=== PATIENT | female | born 1975 | race Caucasian/White ===

== ENCOUNTER 2021-04-01 12:06 | Outpatient (CLI) | payer BC, SELFPAY ==
--- NOTE | ~2021-04-01 | XR_ITS ---
EXAMINATION: XR chest 2V DATE: 04/01/2021 12:39 INDICATION: Chest pain. TECHNIQUE: Frontal and lateral views of the chest were obtained. COMPARISON: Chest 2 views 06/30/2017 FINDINGS: There is mild scarring at the lung apices. No pleural effusion or pneumothorax. The heart s ize is normal. Pectus excavatum is noted. There is a fracture of the body of the sternum with plate a nd screw fixation. There is a reconstruction plate with multiple screws spanning the anterior fourth ribs and sternum. There is fracture of the plate to the left of midline. IMPRESSION: 1. Stable mild scarring at the lung apices. 2. Fractured reconstruction plate between the left fourth rib and sternum. Reviewed, dictated and finalized at location A.
== END 2021-04-01 12:07 | disposition home or self-care (01) ==
LOC: ANHIMG 12:19
PROVIDERS: PCP Family Medicine
DX: R07.9 Chest pain, unspecified (principal); R91.8 Other nonspecific abnormal finding of lung field
CPT/HCPCS: 71046

== ENCOUNTER 2021-04-12 10:21 | Emergency (ER) | payer BC, SELFPAY ==
--- NOTE | ~2021-04-12 | XR_ITS ---
EXAMINATION: XR chest 1V portable DATE: 04/12/2021 10:48 INDICATION: Cough and cold symptoms TECHNIQUE: frontal view of the chest was obtained. COMPARISON: Chest radiograph dated 04/01/2021 FINDINGS: The lungs remain clear with no focal airspace opacities, pulmonary edema, pleural effusion or pneumot horax. The cardiomediastinal silhouette is normal. Mild pectus excavatum with plate and screw fixatio n extending craniocaudally along the sternum. Additional plate and screw fixation extending from left to right across the anterior fourth ribs. IMPRESSION: 1. No acute cardiopulmonary disease. Reviewed, dictated and finalized at location A.
[2021-04-12 10:28] VITALS: BP 119/87; PULSE 102; RESP 20; TEMP 37.7; O2SAT 97
--- NOTE | 2021-04-12 10:46 | ED.URI ---
HPI - URI/Sore Throat General Chief Complaint: Upper Respiratory Infection Stated Complaint: covid +, dehydrated Time Seen by Provider: 04/12/21 10:26 Source: patient Mode of arrival: ambulatory Limitations: no limitations History of Present Illness HPI Narrative: Patient is a 45 year old female who presents reporting nausea and vomiting. Patient reports Covid + x 3 days. Reports vomiting after all PO intake. Patient is not vaccinated. Patient reports symptoms x 1 week. She also reports fever and cough, denies chest pain or shortness of breath. Patient denies significant medical history. MD elicited complaint: fever, cough and other (nausea and vomiting) Related Data Allergies Allergy/AdvReac Type Severity Reaction Status Date / Time Penicillins Allergy Unknown VOMITING Verified 04/12/21 10:39 Review of Systems Review of Systems: Narrative: CONSTITUTIONAL: Reports fever and chills EYES: Denies visual changes, redness, or discharge. ENT: Denies rhinorrhea, congestion, sore throat, or otalgia. CARDIOVASCULAR: Denies chest pain, palpitations, or edema. RESPIRATORY: Reports cough, denies dyspnea. GASTROINTESTINAL: Reports abdominal pain, nausea and vomiting. GENITOURINARY: Denies dysuria or hematuria. SKIN: Denies rash or itching. MUSCULOSKELETAL: Denies back pain, joint pain, or myalgia. NEUROLOGIC: Denies headache, numbness, dizziness, or weakness. PSYCHIATRIC: Denies anxiety or depression. [facility] Social History Social History Smoking status: Never smoker Second hand tobacco smoke exposure: No Alcohol intake: current Gender identity (if verbalized by the patient): Female Comments At the time of signature, I have reviewed and agree with nursing past medical, surgical, social, and family history unless otherwise noted. Please see nursing chart for further information. There is no relevant family history pertinent to the presenting complaint. Exam Narrative: Exam Narrative: GENERAL: Well-appearing, well-nourished, and in no acute distress. HEAD: Normocephalic, atraumatic. EYES: EOMI. No redness or drainage. Conjunctiva are normal. ENT: Mucous membranes pink and moist. CHEST: No respiratory distress. Clear to auscultation. HEART: Regular rate and rhythm. GI: Soft, nontender without rebound, or guarding. No distention. MUSCULOSKELETAL: No bony tenderness. EXTREMITIES: Normal range of motion. No edema. SKIN: Warm, dry, no rash. NEURO: No focal deficits. Alert and oriented x3. Gait steady. PSYCH: Normal affect. No signs of depression or anxiety. Course Vital Signs Vital signs: Vital Signs Temperature 37.7 C H 04/12/21 10:28 Pulse Rate 102 H 04/12/21 10:28 Respiratory Rate 20 04/12/21 10:28 Blood Pressure 119/87 04/12/21 10:28 Pulse Oximetry 97 04/12/21 10:28 Temperature 36.8 C 04/12/21 11:43 Pulse Rate 59 L 04/12/21 14:38 Respiratory Rate 17 04/12/21 14:38 Blood Pressure 100/76 04/12/21 14:38 Pulse Oximetry 98 04/12/21 14:38 Reviewed MDM - URI/Sore Throat MDM Narrative Medical decision making narrative: Patient has leukopenia, rest of labs are nonremarkable. Patient hydrated with 2 L of normal saline in ED along with Zofran for nausea. Patient feeling somewhat better at this time. Discussed with patient red flags and warning signs of when to return. Patient to be sent home with Zofran for nausea, instructions on staying well-hydrated as well as continuing the quarantine. Patient agrees with plan of care. Patient is stable for discharge home with outpatient follow-up as needed. Differential Diagnosis Differential diagnosis: Likely upper respiratory infection, viral infection, influenza and other (Covid) Lab Data Result diagrams: 04/12/21 10:38 04/12/21 10:38 Labs: Lab Results 04/12/21 04/12/21 04/12/21 Range/Units 10:38 10:38 11:53 WBC 2.5 L (4.5-10.0) K/mm3 RBC 5.16 (4.2-5.4) M/mm3 Hgb 15.3 H (12.0-15.0) g/dL H
[2021-04-12 10:47] LABS: Basophils Percent Auto 0.4 % (0.2-1.2); Hematocrit 46.4 % (37.0-47.0); Hemoglobin 15.3 g/dL (12.0-15.0); Immature Granulocyte Absolute 0.01 K/mm3 (0.00-0.031); Immature Granulocyte Percent A 0.4 % (0-0.5); Lymphocytes Absolute Auto 0.66 K/mm3 (0.9-3.2); Lymphocytes Percent Auto 26.4 % (18.3-44.2); Mean Corpuscular Hemoglobin 29.7 pg (26-34); Mean Corpuscular Volume 89.9 fl (80-100); Mean Platelet Volume 10.2 fl (7.4-10.4); Monocytes Absolute Auto 0.3 K/mm3 (0.1-0.6); Neutrophils Absolute Auto 1.5 K/mm3 (1.3-6.7); Neutrophils Percent Auto 60.8 % (45.5-73.1); Platelet Count Result 168 k/mm3 (150-375); Red Blood Count 5.16 M/mm3 (4.2-5.4); White Blood Count 2.5 K/mm3 (4.5-10.0)
[2021-04-12 11:03] LABS: Alanine Aminotransferase 36 U/L (4-35); Albumin Level 4.3 g/dL (3.5-5.1); Alkaline Phosphatase 54 U/L (38-126); Anion Gap 11 mmol/L (8-16); Aspartate Amino Transferase 55 U/L (14-36); Bilirubin,Total 0.4 mg/dL (0.2-1.3); Blood Urea Nitrogen 14 mg/dL (7-17); Calcium 8.9 mg/dL (8.4-10.2); Carbon Dioxide 28 mmol/L (22-30); Chloride 100 mmol/L (98-107); Estimated CRCL calculation 84 ml/min; Estimated Glomerular Filt Rate > 60; Glucose 105 mg/dL (65-110); Potassium 3.8 mmol/L (3.4-5.0); Sodium 139 mmol/L (137-145)
[2021-04-12] MEDS: ONDANSETRON INJ 4 MG/2 ML VIAL IV PUSH ×2 (11:06→13:18)
[2021-04-12] MEDS: SODIUM CHLORIDE 0.9% IV 1,000 ML 999 ML IV CONT ×2 (11:06→13:06)
[2021-04-12 11:41] VITALS: TEMP 36.8
[2021-04-12 11:43] VITALS: BP 104/71; PULSE 81; RESP 17; TEMP 36.8; O2SAT 99
[2021-04-12 12:12] LABS: Add Urine Microscopic? YES; Appearance Urine Clear (Clear); Bacteria Urine Trace /hpf; Bilirubin Urine Negative (Negative); Blood Urine 2+ (Negative); Color Urine Yellow (Yellow); Glucose Urine UA Negative (Negative); Ketones Urine 1+ mg/dL (Negative); Leukocyte Esterase Ur Negative LEU/UL (Negative); Mucus Urine Rare /lpf; Nitrate Urine Negative (Negative); Protein Urine 1+ mg/dL (Negative); RBC Urine 0-2 /hpf (0-2); Specific Grav Ur 1.024 (1.001-1.035); Squamous Epithelial Cell Urine Occasional /hpf (Few); Urobilinogen Urine Negative mg/dL (<2.0)
[2021-04-12 13:06] VITALS: BP 100/58; PULSE 71; RESP 17; O2SAT 98
[2021-04-12 14:38] VITALS: BP 100/76; PULSE 59; RESP 17; O2SAT 98
== END 2021-04-12 14:40 | disposition home or self-care (01) ==
PROVIDERS: Emergency Provider Nurse Practitioner; PCP Family Medicine
DX: U07.1 COVID-19 (principal)
CPT/HCPCS: 36415; 71045; 80053; 81001; 81025; 85025; 96361; 96365; 96374; 96375; 99284; J0131; J2405; J7030

== ENCOUNTER 2021-04-16 02:48 | Observation (INO) | payer BC, SELFPAY ==
[2021-04-16] VITALS (11 sets, daily range): BP systolic 95–122; BP diastolic 54–75; PULSE 57–91; RESP 17–24; TEMP 36.6–37.4; O2SAT 93–96; BMI 19.6
--- NOTE | ~2021-04-16 | XR_ITS ---
XR chest 1V portable 04/16/2021 03:52 Indication: Covid positive. Dyspnea. Procedure: AP portable chest Comparison: 04/12/2021 Findings: Progression of bibasilar airspace disease, compatible with pneumonia. No pleural effusion. No pneumothorax. Stable cardiomediastinal silhouette. Impression: 1: Persistent bibasilar airspace disease, consistent with pneumonia. Reviewed, dictated and finalized at location A. Impression: 1: Persistent bibasilar airspace disease, consistent with pneumonia.
--- NOTE | ~2021-04-16 | CT_ITS ---
EXAMINATION: CTA chest PE protocol DATE: 04/16/2021 07:24 CDT INDICATION: Covid positive. Dyspnea. Evaluate for pulmonary embolism. TECHNIQUE: Computed tomographic angiography (CTA) of the chest was performed with 100 mL Omnipaque-35 0 intravenous contrast. The dose-length product was 167.81 mGy-cm. Maximum intensity projection 3D-re constructions of the aorta and other arteries were constructed by the technologist on a separate work station. Automated exposure control and iterative reconstruction technique were employed. COMPARISON: Chest dated 04/16/2021. FINDINGS: There are surgical changes consistent with pectus excavatum correction. Study is technicall y adequate without evidence for pulmonary embolism. No thoracic lymphadenopathy. Heart size normal. N o significant pleural or pericardial effusion. There is patchy bilateral airspace disease predominant ly in the lower lobes, compatible with pneumonia. No endobronchial lesions. There is dextroscoliosis. No acute osseous abnormality. IMPRESSION: 1. Patchy predominantly lower lobe airspace disease, compatible with pneumonia. Reviewed, dictated and finalized at location A.
--- NOTE | 2021-04-16 03:06 | ED.URI ---
HPI - URI/Sore Throat General Chief Complaint: Upper Respiratory Infection Stated Complaint: covid +/ dehydrated Time Seen by Provider: 04/16/21 03:05 Source: patient Mode of arrival: ambulatory Limitations: no limitations History of Present Illness HPI Narrative: Patient is a 45-year-old female who presents for evaluation of nausea, vomiting, fever in the setting of Covid positive status. Patient reports she was diagnosed with Covid 12 days ago. States in that time she has had increasing dry cough, shortness of breath, nausea, vomiting, significant arthralgias. Patient states she has been unable to tolerate any oral intake for a week. She reports increasing weakness, headache and malaise. She reports loss of sense of taste and smell. She reports mild, aching abdominal pain. She denies any urinary symptoms. Related Data Home Medications Medication Instructions Recorded Confirmed norgestimate-ethinyl estradiol tablet 04/16/21 [Tri-Sprintec (28)] Allergies Allergy/AdvReac Type Severity Reaction Status Date / Time Penicillins Allergy Unknown VOMITING Verified 04/16/21 03:12 amoxicillin [From Amoxil] Allergy Rash Verified 04/16/21 03:12 Review of Systems Review of Systems: Narrative: CONSTITUTIONAL: Reports fever and chills EYES: Denies visual changes, redness, or discharge. ENT: Reports rhinorrhea and congestion CARDIOVASCULAR: Denies chest pain, palpitations, or edema. RESPIRATORY: Reports cough and shortness of breath GASTROINTESTINAL: Reports abdominal pain, nausea and vomiting GENITOURINARY: Denies dysuria or hematuria. SKIN: Denies rash or itching. MUSCULOSKELETAL: Denies back pain, reports joint pain and myalgias NEUROLOGIC: Reports headache and weakness [facility] Past Medical History Medical History (Updated 04/16/21 @ 07:15 by Tosha Carpenter MD) COVID Social History Social History Smoking status: Never smoker Second hand tobacco smoke exposure: No Alcohol intake: current Gender identity (if verbalized by the patient): Female Sexual Orientation (if Verbalized by the Patient): Straight or Heterosexual Exam Narrative: Exam Narrative: GENERAL: Awake, alert, conversant HEAD: Normocephalic, atraumatic. EYES: PERRLA and EOMI. ENT: Nares clear, no rhinorrhea or epistaxis. Mucous membranes dry NECK: Supple. CHEST: Borderline hypoxemic, oxygen saturation 91% on room air, no significant respiratory distress HEART: Tachycardic rate, sinus rhythm ABDOMEN:Non distended, non tender EXTREMITIES: Normal range of motion. No edema. SKIN: Warm, dry, no rash. NEURO:No focal deficits. Alert and oriented x3 Course Vital Signs Vital signs: Vital Signs Temperature 36.6 C 04/16/21 02:52 Pulse Rate 91 04/16/21 02:52 Respiratory Rate 18 04/16/21 02:52 Blood Pressure 100/75 04/16/21 02:52 Pulse Oximetry 93 04/16/21 02:52 Temperature 36.6 C 04/16/21 02:52 Pulse Rate 83 04/16/21 05:34 Respiratory Rate 23 H 04/16/21 05:34 Blood Pressure 95/74 L 04/16/21 05:34 Pulse Oximetry 93 04/16/21 05:34 MDM - URI/Sore Throat MDM Narrative Medical decision making narrative: Patient presenting in the setting of Covid infection. She is dehydrated appearing and hypoxic on room air. She improves at rest. With ambulation's oxygen saturation is 88%. Patient is afebrile at the time of assessment. Chest x-ray notable for patchy infiltrates. She is meeting criteria for Decadron, thus she was given Decadron in the ER. No significant electrolyte derangement. CT for PE is negative. Patient given IV fluids, antiemetic and pain medication. She was admitted for hypoxemia in the setting of Covid infection. Differential Diagnosis Differential diagnosis: Likely upper respiratory infection, viral infection, influenza and pharyngitis Lab Data Attestation: I reviewed the patient's lab results. Result diagrams: 04/16/21 04:08
--- NOTE | 2021-04-16 03:23 | ECG_ITS ---
Measurements Intervals [place] Rate: 81 P: 19 RI: 123 QRS: 15 QRSD: 100 T: 11 QT: 384 QTc: 447 Interpretive Statements SINUS RHYTHM INCOMPLETE RIGHT BUNDLE BRANCH BLOCK BORDERLINE T WAVE ABNORMALITY- INFERIOR LEADS VOLTAGE CRITERIA FOR LVH MINIMAL Q WAVES- LAT/HIGH LAT LEADS BORDERLINE ECG Electronically Signed On 04-16-2021 6:36:56 CDT by Conor Santana D.O.
[2021-04-16] MEDS: SODIUM CHLORIDE 0.9% IV 1,000 ML 999 ML IV CONT (03:59)
[2021-04-16] MEDS: ONDANSETRON INJ 4 MG/2 ML VIAL IV PUSH ×4 (04:00→23:34)
[2021-04-16] MEDS: ACETAMINOPHEN 500 MG TABLET 1000 MG PO (04:02)
[2021-04-16 04:22] LABS: Basophils Percent Auto 0.4 % (0.2-1.2); Hematocrit 39.4 % (37.0-47.0); Hemoglobin 13.4 g/dL (12.0-15.0); Immature Granulocyte Absolute 0.01 K/mm3 (0.00-0.031); Immature Granulocyte Percent A 0.4 % (0-0.5); Lymphocytes Absolute Auto 0.59 K/mm3 (0.9-3.2); Lymphocytes Percent Auto 21.2 % (18.3-44.2); Mean Corpuscular Hemoglobin 29.4 pg (26-34); Mean Corpuscular Volume 86.4 fl (80-100); Mean Platelet Volume 9.7 fl (7.4-10.4); Monocytes Absolute Auto 0.5 K/mm3 (0.1-0.6); Monocytes Percent Auto 16.2 % (2.6-8.5); Neutrophils Absolute Auto 1.7 K/mm3 (1.3-6.7); Neutrophils Percent Auto 61.8 % (45.5-73.1); Platelet Count Result 302 k/mm3 (150-375); Red Blood Count 4.56 M/mm3 (4.2-5.4); Red Cell Distribution Width 12.8 % (11.5-14.5); White Blood Count 2.8 K/mm3 (4.5-10.0)
[2021-04-16 04:35] LABS: D Dimer 0.78 ug/mL (<0.48)
[2021-04-16 04:39] LABS: Alanine Aminotransferase 29 U/L (4-35); Albumin Level 3.7 g/dL (3.5-5.1); Alkaline Phosphatase 51 U/L (38-126); Anion Gap 11 mmol/L (8-16); Aspartate Amino Transferase 46 U/L (14-36); Bilirubin,Total 0.5 mg/dL (0.2-1.3); Blood Urea Nitrogen 15 mg/dL (7-17); Calcium 8.4 mg/dL (8.4-10.2); Carbon Dioxide 25 mmol/L (22-30); Chloride 99 mmol/L (98-107); Estimated CRCL calculation 113 ml/min; Estimated Glomerular Filt Rate > 60; Glucose 99 mg/dL (65-110); Potassium 3.4 mmol/L (3.4-5.0); Sodium 135 mmol/L (137-145)
[2021-04-16 04:49] LABS: Troponin I < 0.012 ng/mL (0.000-0.034)
[2021-04-16 05:16] LABS: Creatine Kinase 62 U/L (30-135)
[2021-04-16] MEDS: MORPHINE SULFATE (*CRX) 4 MG/ML INJ IV PUSH (06:29)
[2021-04-16] MEDS: diphenhydrAMINE HCl INJ 50 MG/ML VIAL 25 MG IV PUSH (06:32)
[2021-04-16] MEDS: SODIUM CHLORIDE 0.9% IV 1,000 ML 150 ML IV CONT (06:36)
--- NOTE | 2021-04-16 08:50 | PC.NURSE ---
This patient, Luma Narvaez, was admitted to 3 [facility] Surg Room 324-01. Patient/family oriented to hospital policies and general routines including ID bracelet, bed and alarms, visiting hours, pain management, procedures, bathroom and other care routines, personal items, smoking policy, room service/diet, and visiting hours. Report received from Nevaeh RODRIGUEZ Information on how to activate the Rapid Response Team has been discussed. Patient/Family are encouraged to report perceived risks to care and to ask questions if they do not understand what they are told or what they should do.
[2021-04-16] MEDS: ACETAMINOPHEN 325 MG TABLET 650 MG PO (17:09)
--- NOTE | 2021-04-16 21:46 | PM.IMHP ---
H&P: HPI History of Present Illness Date/Time: 04/16/21 21:46 Chief Complaint: Shortness of breath Narrative: This is a 45-year-old female with known significant past medical history. PATIENT PRESENTED TO THE EMERGENCY ROOM AFTER SHE HAD BEEN DIAGNOSED WITH COVID IN NUMBERS OF DAYS AGO SHE NOTED IS LOSS OF TASTE AND SMELL SHORTNESS OF BREATH MUSCLE ACHES AND PAINS FEVERS CHILLS POOR APPETITE NAUSEA AND VOMITING. OF THE TIME OF MY VISIT PATIENT COMPLAINED THAT HIS HAS BEEN INCREASINGLY DIFFICULT FOR HER TO GET IT A FULL BREATH IS PAINFUL WHEN SHE TAKES A DEEP BREATH SHE EXPLAINS THAT SHE HAS SOME SORT OF HARDWARE IMPLANTED IN HER RIBCAGE WELL. PRELIMINARY WORKUP WAS MAINLY REMARKABLE FOR LUNG INFILTRATES SEEN ON CT CHEST PE PROTOCOL WHICH WAS NEGATIVE FOR ACUTE PULMONARY EMBOLISM A BMP WAS SIGNIFICANT FOR LOW POTASSIUM. SHE HAS BEEN ADMITTED FOR FURTHER EVALUATION AND TREATMENT. Review of Systems Review of Systems: Narrative: GENERALIZED MUSCLE ACHES AND PAINS SHORTNESS OF BREATH GENERAL MALAISE CHILLS FEVER LOSS OF TASTE AND SMELL NAUSEA VOMITING AND POOR APPETITE Constitutional: Constitutional: Reports chills, Reports fever(s), Reports lethargy, Reports malaise and Reports poor appetite Eyes: Eyes: Denies change in vision ENT: Denies odynophagia Cardiovascular: Cardiovascular: Denies rapid heart rate, Denies irregular heart rhythm, Denies radiating jaw, neck or arm pain, Denies palpitations, Denies dyspnea, Denies dyspnea on exertion and Denies orthopnea Respiratory: Respiratory: Reports cough and Reports dyspnea Gastrointestinal: Gastrointestinal: Denies diarrhea, Reports nausea and Reports vomiting Genitourinary: Genitourinary: Reports no additional female genitourinary complaints Musculoskeletal: Comments: MUSCLE ACHES AND PAINS Integumentary/Breasts: Skin/Breast: Reports system reviewed and no additional complaints, except as docu Neurologic: Reports system reviewed and no additional complaints, except as documented Psychiatric: Psychiatric: Reports no additional psychiatric complaints Endocrine: Endocrine: Reports no additional endocrine complaints Hematologic/Lymphatic: Hematologic/Lymphatic: Reports no additional hematologic/lymphatic complaints Allergic/Immunologic: Allergic/Immunologic: Reports no additional allergic/immunologic complaints [facility] Past Medical History Medical History (Updated 04/16/21 @ 07:15 by Tosha Carpenter MD) COVID Family History Family History (Updated 04/16/21 @ 09:20 by Cristel Hernandez RN) Other No significant family history Social History Social History Smoking status: Never smoker Second hand tobacco smoke exposure: No Alcohol intake: current Drinks per week: 1 Substance use: never Gender identity (if verbalized by the patient): Female Sexual Orientation (if Verbalized by the Patient): Straight or Heterosexual Spiritual care concerns: No Meds Home Medications and Allergies Home Medications Medication Instructions Recorded Confirmed Type ondansetron 4 mg PO Q6H PRN #20 tablet 04/12/21 04/16/21 Rx norgestimate-ethinyl estradiol 1 tablet PO DAILY 04/16/21 04/16/21 History [Tri-Sprintec (28)] Allergies Allergy/AdvReac Type Severity Reaction Status Date / Time Penicillins Allergy Unknown VOMITING Verified 04/16/21 03:12 amoxicillin [From Amoxil] Allergy Rash Verified 04/16/21 03:12 Vital Signs Vital Signs - 24 hr 04/16/21 02:52 04/16/21 03:09 04/16/21 05:34 Temperature 97.8 F Pulse Rate 91 83 Respiratory Rate 18 23 H Blood Pressure 100/75 95/74 L Pulse Oximetry 93 93 93 04/16/21 07:23 04/16/21 08:25 04/16/21 08:36 Temperature Pulse Rate 65 63 65 Respiratory Rate 17 17 18 Blood Pressure 107/73 107/70 101/66 Pulse Oximetry 94 94 94 04/16/21 09:14 04/16/21 12:00 04/16/21 16:00 Temperature 99.3 F 98.2 F 98.6 F Pulse Rate 65 64 59 L Respirator
[2021-04-16] MEDS: MELATONIN 5 MG TABLET PO (22:55)
[2021-04-17] VITALS (10 sets, daily range): BP systolic 102–108; BP diastolic 61–70; PULSE 64–103; RESP 14–22; TEMP 36.6–36.8; O2SAT 91–98
[2021-04-17] MEDS: ONDANSETRON INJ 4 MG/2 ML VIAL IV PUSH ×4 (06:51→21:30)
[2021-04-17] MEDS: ALBUTEROL SULFATE (*SP) AEROSOL 1 PUFF 2 PUFF INHALATION ×3 (08:46→19:42)
--- NOTE | 2021-04-17 13:55 | PHAR ---
HOME MED VERIFIED TRI SPRINTEC ONE TABLET DAILY
--- NOTE | 2021-04-17 16:07 | P.DS_ITS ---
DS: Summary Time Spent with Patient Time attestation: Total time spent providing and/or coordinating discharge ser vices: DS: Data Data Completed and Pending Labs on day of discharge: Labs from last 24 hours 04/16/21 22:54 Blood Type A Positive Discharge Plan Discharge Attending physician on discharge: Abraham Berumen Discharging Clinician: Lynne Liu Patient Disposition: Home, Self-Care Activity: as tolerated Diet: regular Discharge Instructions: -Continue isolating yourself and the people you have been around. According to the CDC recommendations, you should quarantine for at least 10 days since your symptoms first appeared. Once these 10 days are up AND you have no more symptoms AND you have not had a fever for 24 hours (without fever medication), you are able to discontinue your quarantine. You still need to wear a mask and socially distance from others. Continue to remain active to avoid blood clots. - follow-up with your primary care physician in 1-2 weeks about this stay - avoid direct sunlight while on doxycycline and for 10 days after as this can cause your skin to be more sensitive and can burn easier. - worrisome signs and symptoms come back to emergency room for: chest pain, shortness of breath, progressive significant weakness, passing out, or any other worrisome symptom Patient Instructions: Antibiotic Form Stand Alone Forms: General Discharge Information, Work/School Release IP Follow-up/Referrals: Jaimie Donahue MD [Primary Care Provider] - 1 Week Discharge Medications: New dexamethasone [Decadron] 6 mg tablet 6 mg PO DAILY 8 Days Qty: 8 RF: 0 doxycycline hyclate 100 mg capsule 100 mg PO BID 6 Days Qty: 12 RF: 0 albuterol sulfate [Proventil HFA] 90 mcg/actuation Hfa Aerosol Inhaler 2 puff inhalation Q6HRT PRN (Reason: shortness of breath or wheezing) Qty: 6.7 RF: 0 Continued norgestimate-ethinyl estradiol [Tri-Sprintec (28)] 0.18/0.215/0.25 mg-35 mcg (28) tablet 1 tablet PO DAILY RF: 0 ondansetron 4 mg tablet,disintegrating 4 mg PO Q6H PRN (Reason: nausea and vomiting) Qty: 20 RF: 0 Date of admission: 04/16/21 06:07 Primary Care Provider: Jaimie Donahue Admitting Provider: Lolita Patel V. Attending physician on admission: Lynne Liu Condition: Stable
--- NOTE | 2021-04-17 16:11 | PCRCNOTE ---
Patient does not require home oxygen.
[2021-04-17] MEDS: ACETAMINOPHEN 325 MG TABLET 650 MG PO (16:54)
--- NOTE | 2021-04-17 17:33 | PM.IMPN ---
Progress Note: A&P Assessment and Plan (1) Pneumonia due to COVID-19 virus: Code(s): U07.1 - COVID-19; J12.82 - Pneumonia due to coronavirus disease 2019 Status: Acute Assessment and Plan: Patient is on day 13 of COVID and is feeling worse by the day - she is taking very shallow breaths and I explained to her in great detail about the benefit of taking deeper breaths. Will prescribe incentive spirometer - I am going to start Decadron since the patient has been ill for 13 days and feels like she is doing worse. Hold off on Remdesivir at this time - no plan for plasma unless she becomes hypoxic - home O2 evaluation today shows no need for oxygen - continue antibiotics for secondary bacterial infections - CTA shows no PE. I have placed the patient on Lovenox 40 mg b.i.d. she is higher risk of clotting due to COVID-19 and control pills. If she continues to worsen since she was not on anticoagulation during admission, consider repeat CTA. - continue to follow inflammatory markers - I encouraged her to get the vaccine 3 months after acute illness - slightly elevated liver enzymes, likely due to acute infection (2) Hypoxia: Code(s): R09.02 - Hypoxemia Status: Acute Assessment and Plan: resolved (3) Acute dehydration: Code(s): E86.0 - Dehydration Status: Acute Assessment and Plan: resolved (4) Leukopenia: Code(s): D72.819 - Decreased white blood cell count, unspecified Status: Acute Assessment and Plan: likely due to viral infection Time Spent With Patient Time with patient: 25 - 35 minutes Subjective Date/time seen: 04/17/21 17:33 Interval history: Pt is a 45-year-old female here for COVID pneumonia. Patient was seen today and was very anxious. She was tearful that she did not think she could go home today. She was not taking big breaths and felt like she could not breathe. Her oxygen was 96% during my exam. She denies chest pain, he fevers or chills. She continues to have some nausea and is coughing up phlegm. Review of Systems Review of Systems: All systems reviewed & are unremarkable except as noted in HPI and below Exam Narrative: General: Well developed well nourished patient in NAD HEENT: normocephalic Neck: supple Neuro: Alert and oriented x4 CV:RRR Resp: Patient is taking shallow breaths during my exam and unable to take full big breaths. She has crackles bilaterally. She has some conversational dyspnea Abd: Soft, non distended. No pain to palpation. Positive bowel sounds Extremities: No swelling, erythema, or pain to palpation. Objective Data Vital Signs Vital Signs: Vital Signs - 24 hr 04/16/21 20:00 04/16/21 23:39 04/17/21 03:47 Temperature 98.6 F 98.1 F 98.2 F Pulse Rate 62 57 L 64 Respiratory Rate 18 18 18 Blood Pressure 122/74 110/73 102/70 Pulse Oximetry 94 94 94 04/17/21 09:05 04/17/21 15:51 04/17/21 15:53 Temperature Pulse Rate 89 96 Respiratory Rate Blood Pressure Pulse Oximetry 94 95 94 04/17/21 15:55 04/17/21 15:57 04/17/21 15:58 Temperature Pulse Rate 101 H 103 H 100 Respiratory Rate Blood Pressure Pulse Oximetry 92 91 93 04/17/21 15:59 Temperature Pulse Rate 94 Respiratory Rate Blood Pressure Pulse Oximetry 94 Intake/Output Intake/Output: Intake & Output 04/14/21 04/15/21 04/16/21 04/17/21 23:59 23:59 23:59 23:59 Intake Total 2300 470 Output Total 450 700 Balance 1850 -230 Meds/Results Medications: Active Medications Generic Name Dose Route Start Last Admin Trade Name Freq PRN Reason Stop Dose Admin Acetaminophen 650 mg 04/16/21 06:07 04/17/21 16:54 Acetaminophen 325 Mg Tablet PO 650 mg Q4H PRN Administration Mild Pain (1-3) or Fever Albuterol 2 puff 04/17/21 02:00 04/17/21 13:35 Albuterol Sulfate (*Sp) Aerosol 1 Puff INHALATION 2 puff Q6HRT [facility] Administration Alprazolam
[2021-04-17] MEDS: DEXAMETHASONE 2 MG TABLET 6 MG PO (18:43)
[2021-04-17] MEDS: ENOXAPARIN 40 MG/0.4 ML SYRINGE SUB-Q (21:16)
[2021-04-17] MEDS: ALPRAZolam (*CRX) 0.125 MG TABLET PO (21:30)
[2021-04-18] VITALS: BP 95/62; PULSE 67; RESP 20; TEMP 36.4; O2SAT 98
[2021-04-18] MEDS: MELATONIN 5 MG TABLET PO
[2021-04-18] MEDS: DEXTROSE 5%/0.9% SOD CHL 1,000 ML 75 ML IV CONT (01:17)
[2021-04-18] MEDS: ALBUTEROL SULFATE (*SP) AEROSOL 1 PUFF 2 PUFF INHALATION ×3 (03:12→14:20)
[2021-04-18 04:00] VITALS: BP 104/57; PULSE 66; RESP 20; TEMP 36.4; O2SAT 96
[2021-04-18 06:32] LABS: Hematocrit 37.7 % (37.0-47.0); Hemoglobin 12.9 g/dL (12.0-15.0); Mean Corpuscular HGB Conc 34.2 g/dl (32-36); Mean Corpuscular Hemoglobin 29.3 pg (26-34); Mean Corpuscular Volume 85.7 fl (80-100); Mean Platelet Volume 9.2 fl (7.4-10.4); Platelet Count Result 387 k/mm3 (150-375); Red Cell Distribution Width 12.8 % (11.5-14.5)
[2021-04-18 06:37] LABS: White Blood Count 1.5 K/mm3 (4.5-10.0)
--- NOTE | 2021-04-18 06:44 | PC.NURSE ---
I called Dr Patel on the hospitalist phone with a critical lab value - WBC 1.5 at 0638 on 04/18/2021. There was no answer
[2021-04-18 07:02] LABS: Alanine Aminotransferase 21 U/L (4-35); Albumin Level 3.3 g/dL (3.5-5.1); Alkaline Phosphatase 46 U/L (38-126); Anion Gap 9 mmol/L (8-16); Aspartate Amino Transferase 24 U/L (14-36); Bilirubin,Total 0.4 mg/dL (0.2-1.3); Blood Urea Nitrogen 11 mg/dL (7-17); CRP 1.8 mg/dL (<1.0); Calcium 8.3 mg/dL (8.4-10.2); Carbon Dioxide 23 mmol/L (22-30); Chloride 102 mmol/L (98-107); Estimated CRCL calculation 105 ml/min; Estimated Glomerular Filt Rate > 60; Glucose 173 mg/dL (65-110); Potassium 4.1 mmol/L (3.4-5.0); Sodium 134 mmol/L (137-145)
[2021-04-18 08:00] VITALS: BP 105/70; PULSE 56; RESP 16; TEMP 36.7; O2SAT 97
[2021-04-18] MEDS: ENOXAPARIN 40 MG/0.4 ML SYRINGE SUB-Q (08:06)
[2021-04-18] MEDS: DEXAMETHASONE 2 MG TABLET 6 MG PO (08:06)
[2021-04-18 12:00] VITALS: BP 109/68; PULSE 63; RESP 16; TEMP 37.3; O2SAT 97
--- NOTE | 2021-04-18 16:05 | PM.DS ---
DS: Admitting Diagnosis Admitting Diagnosis SOB DS: Discharge Diagnosis Discharge Diagnosis (1) Pneumonia due to COVID-19 virus: Code(s): U07.1 - COVID-19; J12.82 - Pneumonia due to coronavirus disease 2019 Status: Acute Assessment and Plan: The patient is a 45-year-old woman with a history of pectus excavatum s/p Ravitch procedure 3 years ago, who presented to emergency room after being diagnosed with COVID on 04/03/21 and having worsening symptoms of shortness of breath, muscle aches, fevers, chills, poor appetite, loss of taste and smell, nausea and vomiting. The patient states a few weeks ago she workup having chest pain and found out that her Ravitch procedure wiring/metal madyson had broken. then she found out she had COVID and she has increased pain to her chest when she coughs. the patient come to the emergency room on 04/12/2021 due to her symptoms and was discharged with some oral Zofran for her nausea and vomiting which had no relief. She has had to come in for further evaluation and feeling like she was dehydrated. Initial labs showed she was afebrile, non tachycardic, normal respiratory rate, low blood pressure and 95/74, oxygenation 93% on room air. Initial labs showed leukopenia at 2,500, elevated D- dimer at 0.78, slightly elevated LFTs at 55/36. normal troponin. Urinalysis showed no acute signs of infection. Chest x-ray showed persistent bibasal airspace disease consistent with pneumonia. CTA of her chest showed patchy predominantly lower lobe airspace disease compatible with pneumonia, Study is technically adequate without evidence for pulmonary embolism. she was admitted into the hospital Where she remained on room air. She was treated with p.r.n. antiemetics, pain medication. she was started on Decadron due to her symptoms and feeling worse. She has not received any IV Remdesivir or Plasma since she was not hypoxic. she had a home oxygen evaluation which showed no need for oxygen at discharge. She was continued on oral antibiotics to reduce the risk of secondary bacterial infections. She was on Lovenox 40 mg b.i.d. while in the hospital due to her high risk with COVID as well as being on control pills. Explain her she needs to continue ambulating to decrease the risk of forming clots. The patient is otherwise feeling better today. Believe she can be discharged home with medications to take. She understands the risks of coming back to the emergency room with any new or worsening symptoms. Follow-up with primary care provider in 1 week for further evaluation monitoring. Patient understands and agrees the plan all questions answered. - I encouraged her to get the vaccine 3 months after acute illness - slightly elevated liver enzymes, likely due to acute infection (2) Hypoxia: Code(s): R09.02 - Hypoxemia Status: Acute Assessment and Plan: resolved (3) Acute dehydration: Code(s): E86.0 - Dehydration Status: Acute Assessment and Plan: resolved (4) Leukopenia: Code(s): D72.819 - Decreased white blood cell count, unspecified Status: Acute Assessment and Plan: likely due to viral infection DS: Summary Hospital Course Hospital Course: See above Status at Discharge Cognitive/behavioral status at discharge: Stable, improved. Time Spent with Patient Time attestation: Total time spent providing and/or coordinating discharge services: 42 Time spent: Greater than 30 minutes Exam Narrative: General: 45-year-old woman sitting up in bed. Appears comfortable. In no acute distress. Skin: No jaundice or cyanosis. Good skin turgor. Neck: Full range of motion. Supple. Respiratory: Decreased lung sounds to auscultation bilaterally. No wheezing ,rales or rhonchi auscultated. No bony chest wall tenderness. Cardiovascular: The heart has a regular rate and rhythm without murmur. Lower extremities: No lower extrem
== END 2021-04-18 16:32 | disposition home or self-care (01) ==
LOC: ANHED 07:15 → ANH3MEDSUR 08:25
PROVIDERS: Physician Assistant; Admitting Provider Internal Medicine; Emergency Provider Emergency Medicine; PCP Family Medicine; Visit Provider Physician Assistant
DX: U07.1 COVID-19 (principal); J12.82 Pneumonia due to coronavirus disease 2019; D72.829 Elevated white blood cell count, unspecified
CPT/HCPCS: 36415; 71045; 71275; 80048; 80053; 80076; 81025; 82550; 84443; 84484; 85025; 85027; 85380; 86140; 86900; 86901; 87040; 93005; 94618; 94640; 96361; 96365; 96366; 96367; 96372; 96375; 96376; 99285; A9270; G0378; J0456; J0696; J1100; J1200; J1650; J2270; J2405; J7030; J7042; J8540; Q9967

== ENCOUNTER → 2021-06-10 09:17 | Outpatient (CLI) | payer BC, SELFPAY ==
--- NOTE | ~2021-06-10 | US_ITS ---
US breast LT complete DATE: 06/10/2021 10:10 INDICATION: Left breast lump TECHNIQUE: The patient presented with an order for bilateral diagnostic mammography patient declined that examination due to prior rib surgery. The technologist contacted the doctor's office staff; they reportedly were aware of the patient's decision not to have the mammogram performed. Complete right breast ultrasound examination was performed COMPARISON: 06/30/2017 bilateral digital screening mammogram: Extremely dense breast parenchyma; no m ammographic evidence of malignancy was detected FINDINGS: Multiple simple breast cysts are identified, largest at 9:00 4 cm from the nipple, measurin g up to 2 x 1.3 x 1.6 cm, with through transmission posterior enhancement. A multi septated cyst at 2:00 3 cm from the nipple measures approximately 3.2 x 8.7 mm. No suspicious mass or shadowing is detected. IMPRESSION: Scattered breast cysts BI-RADS Category 2: Benign Reviewed, dictated and finalized at [facility]. Reviewed, dictated and finalized at [facility].
== END ==
PROVIDERS: Visit Provider Nurse Practitioner Obstetrics & Gynecology
DX: Z12.31 Encounter for screening mammogram for malignant neoplasm of breast (principal); N60.02 Solitary cyst of left breast
CPT/HCPCS: 76641

== ENCOUNTER 2024-04-15 09:49 | Outpatient (CLI) | payer OTHER, SELFPAY ==
--- NOTE | ~2024-04-15 | MMUS_ITS ---
EXAMINATION: MM diagnostic andie BI w viki, US breast BI complete HISTORY: Palpable left breast lump TECHNIQUE: Additional 3-D tomosynthesis images of the breasts were performed and synthetic 2-D images were generated. CAD analysis was submitted and interpreted. High resolution bilateral complete breas t ultrasound was performed. COMPARISON: Comparison to multiple prior studies sequentially, with oldest reviewed study dated 06/21. BREAST PARENCHYMAL COMPOSITION: Dense: The breasts are extremely dense, which lowers the sensitivity of mammography. FINDINGS: MAMMOGRAPHIC FINDINGS: In the area palpable concern there is a mass in the lower inner quadrant of the left breast. There ar e no discrete masses in the right breast. There are no suspicious areas of architectural distortion o r suspicious calcifications. ULTRASOUND: Complete bilateral US of all 4 quadrants of the breasts and retroareolar region was reviewed. Right breast: Multiple bilateral cysts of the breasts. Largest in the right breast measures 9 mm at 1 :00 near the nipple. Largest in the left breast corresponds to the palpable abnormality at 9:00, 5 cm from the nipple measuring 2.7 cm. At 3:00, 5 cm from the nipple there is an oval hypoechoic mass wit h internal cystic changes measuring 6 x 6 x 4 mm with parallel orientation, posterior acoustic enhanc ement, likely a cluster of microcysts. IMPRESSION: 1. Large benign simple cyst measuring 2.7 cm at 9:00, 5 cm from the nipple corresponding to the palpa ble finding. Probable benign 6 mm mass of the left breast at 3:00, 5 cm from the nipple. 2. Recommend 6 month follow-up Limited left breast ultrasound BI-RADS category 3, probably benign findings. Reviewed, dictated and finalized at [facility]. IMPRESSION: 1. Large benign simple cyst measuring 2.7 cm at 9:00, 5 cm from the nipple albino esponding to the palpable finding. Probable benign 6 mm mass of the left breast at 3:00, 5 cm from the nipple. 2. Recommend 6 month follow-up Limited left breast ultrasound BI-RADS category 3, probably benign findings.
== END 2024-04-15 09:50 | disposition home or self-care (01) ==
LOC: CHSIMG 09:52
PROVIDERS: PCP Internal Medicine; Visit Provider Nurse Practitioner
DX: N63.25 Unspecified lump in the left breast, overlapping quadrants (principal)
CPT/HCPCS: 76641; 77062; 77066; G0279

== ENCOUNTER 2025-03-27 07:54 | Outpatient (CLI) | payer OTHER, SELFPAY ==
--- NOTE | ~2025-03-27 | MR_ITS ---
MRI of the lumbar spine Clinical History: Radiculopathy Technique: Axial T2-weighted images, and sagittal T1-weighted, T2-weighted, and T2 fat-sat images wer e acquired. Findings: No fracture identified. There is 8mm anterolisthesis of L5 over S1. No suspicious bone manuela ow signal abnormality seen. At L1-L2, L2-L3 3-04, there is no disc bulge or herniation. There are mild facet joint degenerative c hanges at these levels. No spinal canal stenosis or neural foraminal narrowing at these levels. At L4-L5, there is minimal disc bulge. There is mild to moderate facet arthropathy. No central canal stenosis or neural foraminal narrowing. At L5-S1, there is moderate to advanced degenerative distended. There is diffuse disc bulge/uncoverin g with moderate facet arthropathy. There is mild central canal stenosis. There is minimal bilateral n eural foraminal narrowing. Paravertebral soft tissues are unremarkable. Impression: 8 mm anterolisthesis of L5 over S1. Moderate degenerative spondylosis at L5-S1. Minimal degenerative change at L4-L5, as above. Reviewed, dictated and finalized at location . Impression: 8 mm anterolisthesis of L5 over S1. Moderate degenerative spondylosis at L5-S1. Minimal degenerative change at L4-L 5, as above.
== END 2025-03-27 07:55 | disposition home or self-care (01) ==
LOC: MICIMG 07:56
DX: M47.26 Other spondylosis with radiculopathy, lumbar region (principal)
CPT/HCPCS: 72148